=== PATIENT | female | born 2005 | race Caucasian/White ===

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

== ENCOUNTER 2025-08-18 22:16 | Emergency (ER) | payer OTHER, SELFPAY ==
[2025-08-18 22:25] VITALS: BP 140/86; PULSE 62; RESP 14; TEMP 37; O2SAT 98
--- OUTSIDE RECORDS SUMMARY | 2025-08-18 22:25 | XMS_ITS | Clinical Summary ---
Author Organization [facility] Address [address] [place] [address] Care Team Providers Care Utilities Estimator And Drafter Name Role Phone Bijan Hernandez DO Primary Care Provider [phone] Allergies Active Allergy Reactions Criticality Noted Date Comments Sulfa (Sulfonamide Antibiotics) Rash Low 04/14 Medications vits15/iron/foli c/dss ( VIT 86-FPBT-BHHRG-DS S ORAL) Take by mouth. Activ e famotidine (PEPCID) 40 mg tabletIndication s:Gastroesophage al reflux disease without esophagitis Take 1 Tablet (40 mg) by mouth 2 times daily. 60 Tablet 2 4 Active acetaminophen (TYLENOL) 325 mg tablet Take 2 Tablets (650 mg) by mouth every 6 hours. 4 Active ibuprofen (MOTRIN) 600 mg tablet Take 1 Tablet (600 mg) by mouth every 6 hours as needed for Other (See Comment) (For pain secondary to inflammation). 30 Tablet 06/24/2024 3:31 PM CDT 4 Active potassium chloride (K-TAB) 20 mEq Extended Release tablet Take 1 Tablet (20 mEq) by mouth daily with breakfast. 30 Tablet 06/24/2024 3:31 PM CDT 4 Active ferrous sulfate 325 mg (65 mg iron) tablet Take 1 Tablet (325 mg) by mouth 2 times daily. 60 Tablet 06/24/2024 3:31 PM CDT 4 Active buPROPion HCL (Wellbutrin XL) 150 mg Extended Release 24 hour tabletIndication s: depression Take 1 Tablet (150 mg) by mouth daily in the morning. 30 Tablet 11 4 Active Active Problems Problem Noted Date Diagnosed Date Routine follow-up 07/18/2024 Low serum potassium 06/23/2024 Supervision of high risk in third trim [place] 06/22/2024 Gestational hypertension, second trimester 04/04 delivery delivered 04/02/2024 Recurrent UTI (urinary tract infection) complicating , second trimester 04/02/2024 Depression affecting pregnan cy in second trimester, antepartum 03/04/2024 Nausea and vomiting in 12/11/2023 Anxiety state 02/17/2022 Migraine without aura and wi thout status migrainosus, not intractable 08/26/2021 Resolved Problems Problem Noted Date Diagnosed Date Resolved Date Arrest of dilation, delivere d, current hospitalization 06/22/2024 07/18/2024 37 weeks gestation of 04/02/2024 07/18/2024 20 weeks gestation of 02/01/2024 04/04/2024 9 weeks gestation of 12/11/2023 02/01/2024 Encounters Date Type Department Care Team Description 07/29/2025 External Device Data [facility] ABSTRACTION Provider, Abstract 07/15/2025 External Device Data [facility] ABSTRACTION Provider, Abstract 07/01/2025 External Device Data [facility] ABSTRACTION Provider, Abstract 06/17/2025 External Device Data [facility] ABSTRACTION Provider, Abstract 06/17/2025 External Device Data [facility] ABSTRACTION Provider, Abstract 05/28/2025 External Device Data [facility] ABSTRACTION Provider, Abstract 05/28/2025 External Device Data [facility] ABSTRACTION Provider, Abstract 05/28/2025 External Device Data [facility] ABSTRACTION Provider, Abstract 05/27/2025 External Device Data [facility] ABSTRACTION Provider, Abstract from Last 3 Months Immunizations Immunization Administration Dates Next Due Influenza Vaccine Nasal VFC 09/13/2012, 0 Rabies Immune Globulin Human IM/SQ 06/23/2010 Rabies Vaccine IM 06/26/2010,06/23/2010 Family History Medical History Relation Name Comments Healthy Father Healthy Mother Healthy Sister Relation Name Status Comments Father Alive Mother Alive Sister Alive Social History Tobacco Use Types Packs/Day Years Used Date Smoking Tobacco: Never Passive Smoke Exposure: Never Smokeless Tobacco: Never Tobacco Cessation:Counseling Given: Not Answered Alcohol Use Standard Drinks/Week Comments No 0 (1 standard drink = 0.6 oz pur e alcohol) Feeling Safe Answer Date Recorded Are you in a relationship wi th someone who hurts you emotionally and/or physically? No 06/21/2024 Comments No Sex and Gender Information Value Date Recorded Sex Assigned at Female 01/08/2024 7:14 PM FLUE GAS ANALYST Legal Sex Female 2:58 AM FLUE GAS ANALYST Gender Identity Female 01/08/2024 7:14 PM FLUE GAS ANALYST Sexual Orientation Straight 01/08/2024 7: 14 PM FLUE GAS ANALYST Last Filed Vital Signs Vital Sign Reading Time Taken Comments Blood Pressure 120/76 01/29/2025 6:56 PM CDT Pulse 89 01/29/2025 6:56 PM CDT Temperature 36.2 C (97.1 F) 01/29/2025 6:56 PM CDT Respiratory Rate 18 01/29/2025 6:56 PM CDT Oxygen Saturation 99% 01/29/2025 6:56 PM CDT Inhaled Oxygen Concentration - - Weight 104.3 kg (230 lb) 01/29/2025 6:56 PM CDT Height 162.6 cm (5' 4 ) 01/29/2025 6:56 PM CDT Body Mass Index 39.48 01/29/2025 6:56 PM CDT Plan of Treatment Health Maintenance Due Date Last Done Comments HPV VACCINES (1 - 3-dose series) 2019 DTAP/TDAP/TD VACCINES (1 - Tdap) 2023 HEPATITIS B VACCINES (1 of 3 - 19+ 3-dose series) 2023 CERVICAL CANCER SCREENING 2025 HPV/Cotest (21-29) 2025 PAP SMEAR 2025 INFLUENZA VACCINE (#1) 2025 09/13/2012, 2009 CHLAMYDIA SCREENING (ANNUAL) 11-24 YEARS 08/01/2025 08/01/2024 Procedures Procedure Name Priority Date/Time Associated Diagnosis Comments VAGINOSIS/VAGINITIS PANEL PLUS Routine 08/01/2024 3:03 PM CDT Vaginal discharge from Last 3 Months or Most Recently Relevant to Health Maintenance Results * VAGINOSIS/VAGINITIS PANEL PLUS (08/01/2024 3:03 PM CDT) BACTERIAL VAGINOSIS NEGATIVE NEGATIVE [facility] PADMA SPECIES NOT DETECTED NOT DETECTED [facility] PADMA GLABRATA NOT DETECTED NOT DETECTED [facility] Comment: Padma species C. albicans, C. tropicalis, C. parapsilosis, and/or C. dubliniensis can be detected, but not differentiated, in the Padma spp. result. TRICHOMONAS VAGINALIS (TV), TMA NOT DETECTED NOT DETECTED [facility] CHLAMYDIA TRACHOMATIS RNA, TMA, UROGENITAL NOT DETECTED NOT DETECTED [facility] NEISSERIA GONORRHOEAE RNA, TMA, UROGENITAL NOT DETECTED NOT DETECTED [facility] Comment: For additional information, please refer to https://education.Villij/faq/EVK135 (This link is being provided for information/ educational purposes only.) Test Performed at: [facility] [id number] [id number] Aysha Dalton MD Genital SPECIMEN FROM VAGINA / Unknown 08/01/2024 3:03 PM CDT 08/01/2024 6:08 PM CDT Nickolas Marr III, MD MICROBIOLOGY - GENERAL ORDERABLES Final Result [facility] [phone] [facility] [id number] [id number] from Last 3 Months or Most Recently Relevant to Health Maintenance Insurance HEALTH PLAN MEDICAID [facility] CHOICE [id number] RX [facility] [employer] CHOICE [id number] [place] [address] PLAN MEDICAID Advance Directives For more information, please contact: [phone] * Full Code (Latest Code Status on File) Date Activated Date Inactivated Comments 06/22/2024 6:24 PM 06/24/2024 5:49 PM * Full Code Date Activated Date Inactivated Comments 06/21/2024 7:20 AM 06/22/2024 6:24 PM * Full Code Date Activated Date Inactivated Comments 04/01/2024 7:14 PM 04/02/2024 2:52 AM Care Teams Utilities Estimator And Drafter Relationship Specialty Start Date End Date Bijan Hernandez DO [address] [place] [address] PCP - General Family Practice 08/26/21
--- NOTE | 2025-08-18 23:53 | XRR_ITS ---
PROCEDURE INFORMATION: Exam: XR Left Knee Exam date and time: 08/19/2025 12:13 AM Age: 20 years old Clinical indication: Pain; Knee; Left; Additional info: L knee pain S/P fall TECHNIQUE: Imaging protocol: Radiologic exam of the left knee. Views: 3 views. COMPARISON: No relevant prior studies available. FINDINGS: Bones/joints: Normal. Soft tissues: Normal. XR/XR knee LT 3V* [id number] IMPRESSION: No acute findings.
--- NOTE | 2025-08-19 00:19 | W.ED.EXTPRO ---
HPI - Extremity Problem General: Chief complaint: Extremity Injury, Lower Stated complaint: left knee injury Time Seen by Provider: 08/18/25 22:27 History of Present Illness: 20-year-old female presenting with left knee pain, symptoms started yesterday after a slip and fall, has pain worse with ambulation or weightbearing, has an area of swelling behind the knee, no obvious deformity, no bleeding, no injury to the hip or ankle Related Data Home Medications ?Medication ?Instructions ?Recorded ?Confirmed vitamins no.144-folic 2 tab PO DAILY 01/18/24 12/19/24 acid 400 mcg chewable tablet Previous Rx's ?Medication ?Instructions ?Recorded cefdinir 300 mg capsule 300 mg PO BID #14 caps 12/19/24 hnglzluz-tacvyjavt-lmbrsqgen 3.5 4 drp otic (ear) Q8H 7 days #10 mL 12/19/24 mg-10,000 unit/mL-1 % ear drops,susp Allergies Allergy/AdvReac Type Severity Reaction Status Date / Time Sulfa (Sulfonamide Allergy Mild ALGY-Hives Verified 08/18/25 22:28 Antibiotics) Penicillins Allergy ALGY-Rash Verified 08/18/25 22:29 PFS ED PFSH: Social History Smoking and tobacco/nicotine status: never used tobacco/nicotine Physical Exam Narrative: EXAM NARRATIVE: Gen: A&Ox4, no acute distress, nontoxic appearing HEENT: Normocephalic, atraumatic, no scleral icterus, external ears normal, moist mucous membranes Neck: Supple, full range of motion, no observable masses Lungs: No Respiratory distress, Lungs clear to auscultation bilaterally no rales, rhonchi, wheezing CV: Regular rate and rhythm, no murmur, no pitting edema to lower extremities bilaterally Abdomen: Soft, nondistended, nontender to palpation MSK: Mild tenderness to palpation to the left knee diffusely, normal range of motion to the joint passively, extensor mechanism intact, no varus or valgus laxity, anterior /posterior drawer negative, no significant palpable joint effusion, no tenderness palpation of the tib-fib/ankle region with normal range of motion of the ankle without discomfort, no tenderness with passive or active range of motion of the left hip, no distal pitting edema to the left lower extremity, normal DP/PT pulses, no skin lesions Skin: No rashes, petechiae, lesions. Normal color per patient. Neuro: Alert and oriented, no slurred speech, sensation and strength grossly intact all 4 extremities Psych: Appropriate for situation. Course Vital Signs: Vital signs: Vital Signs Temperature 98.6 F 08/18/25 22:25 Pulse Rate 62 08/18/25 22:25 Respiratory Rate 14 08/18/25 22:25 Blood Pressure 140/86 08/18/25 22:25 Pulse Oximetry 98 08/18/25 22:25 MDM - Extremity (Nontraumatic) Medical Decision Making 20-year-old female presenting to the emergency department with left knee pain x 24 hours after a slip and fall, physical exam suggestive of soft tissue injury with relatively low concern for fracture and no concern for dislocation or soft tissue infection, DVT considered but very unlikely given mechanism, plan for x-ray rule out fracture, crutches, NSAIDs, elevation of the leg at night, outpatient PCP/orthopedic follow-up for MRI if symptoms not improving with conservative measures. XR interpretation done by ED provider, pending radiology final review ED provider radiology interpretation(s): Knee x-ray negative for fracture or dislocation on my independent interpretation Discharge Plan Discharge Patient Disposition: Home Clinical Impression: Acute internal derangement of knee Condition: Stable Prescriptions: No Action cefdinir 300 mg capsule 300 mg PO BID Qty: 14 0RF no.144-folic acid 400 mcg tablet,chewable 2 tab PO DAILY tuirzitc-zpfuallyd-TX 3.5-10,000-1 mg/mL-unit/mL-% drops,suspension 4 drp otic (ear) Q8H 7 Days Qty: 10 0RF Discharge Orders: Discharge ED (Routine); Ordered 08/19/25 Ordered By: Sony Piedra Referrals: Bijan Hernandez DO [Primary Care Provider] Giovanny Zaidi DO [Physician, Orthopedics] - 2 weeks Clinical Impression: Acute internal derangement of knee Patient Instructions: Patient Portal & Jose Instructions, Knee Pain (ED) Print Language: Telugu Coding Level of Care Code ED Entry Level Financial Analyst for Hailee Bhakta
[2025-08-19 00:56] VITALS: BP 132/91; PULSE 69; O2SAT 99
--- NOTE | 2025-08-20 08:24 | DCPLANNER ---
Message sent to 21-jdmf-old female presenting to the emergency department with left knee pain x 24 hours after a slip and fall, physical exam suggestive of soft tissue injury with relatively low concern for fracture and no concern for dislocation or soft tissue infection, DVT considered but very unlikely given mechanism, plan for x-ray rule out fracture, crutches, NSAIDs, elevation of the leg at night, outpatient PCP/orthopedic follow-up for MRI if symptoms not improving with conservative measures. XR interpretation done by ED provider, pending radiology final review ED provider radiology interpretation(s): Knee x-ray negative for fracture or dislocation on my independent interpretation
== END 2025-08-19 01:38 | disposition home or self-care (01) ==
PROVIDERS: Emergency Provider Student in an Organized Health Care Education/Training Program; PCP Family Medicine
DX: M23.92 Unspecified internal derangement of left knee (principal)
CPT/HCPCS: 73562; 99283